=== PATIENT | female | born 1990 | race Asian ===

== ENCOUNTER 2017-11-09 09:57 | Day surgery (SDC) | payer OTHER ==
[~2017-11-09 09:57] MED LIST: CEFAZOLIN 1 GM/50 ML (PMX) 50 ML IVPB; SOD CHLORIDE 0.9% 1,000 ML IV
[2017-11-09] MEDS ORDERED: FENTAnyl 50 MCG/ML VIAL IV ×2 (14:00)
[2017-11-09] MEDS ORDERED: MEPERIDINE 25 MG INJ IV (14:00)
[2017-11-09] MEDS ORDERED: HYDROmorphONE (0.2 MG/ML) 10ML SYG IV ×2 (14:00)
[2017-11-09] MEDS ORDERED: OXYCODONE/ACETAMINOPHEN (5/325) TAB PO ×2 (14:00→16:00)
[2017-11-09] MEDS ORDERED: PROCHLORPERAZINE 10 MG INJ IV (14:00)
[2017-11-09] MEDS ORDERED: BUPIVACAINE 0.25% (MPF) 30 ML INJ (14:08)
[2017-11-09] MEDS ORDERED: LIDOCAINE 2% (SDV) 5 ML INJ (14:26)
[2017-11-09] MEDS ORDERED: ROCURONIUM 50 MG INJ (14:27)
[2017-11-09] MEDS ORDERED: PROPOFOL 20 ML (14:27)
[2017-11-09] MEDS ORDERED: FENTAnyl 50 MCG/ML VIAL ×2 (14:27→14:53)
[2017-11-09] MEDS ORDERED: ONDANSETRON 4 MG INJ (14:27)
[2017-11-09] MEDS ORDERED: MIDAZOLAM 1 MG/ML 2 ML INJ (14:27)
[2017-11-09] MEDS ORDERED: DEXAMETHASONE 4 MG/ML 1 ML INJ (14:27)
[2017-11-09] MEDS ORDERED: CEFAZOLIN 1 GM INJ (14:31)
[2017-11-09] MEDS ORDERED: PHENYLephrine (100 MCG/ML) 5ML SYG (14:37)
[2017-11-09] MEDS ORDERED: SUGAMMADEX SODIUM 200 MG/2 ML VIAL IV ×2 (14:47→15:02)
[2017-11-09] MEDS ORDERED: ROPIVACAINE 0.5 % 30 ML VIAL (14:57)
[2017-11-09] MEDS: BUPIVACAINE 0.25% (MPF) 30 ML INJ INJ (15:02)
[2017-11-09] MEDS ORDERED: KETOROLAC 30 MG INJ ×2 (15:03→15:16)
[2017-11-09] MEDS: DIPHENHYDRAMINE 50 MG INJ IV (15:48)
[2017-11-09] MEDS: ONDANSETRON 4 MG INJ IV (15:48)
[2017-11-09] MEDS: FENTAnyl 50 MCG/ML VIAL IV (15:48)
[2017-11-09] MEDS ORDERED: LABETALOL HCL 20MG INJ IV (16:00)
[2017-11-09] MEDS: HYDROmorphONE (0.2 MG/ML) 10ML SYG IV (16:04)
[2017-11-09] MEDS: HYDROCODONE/APAP (5/325) TAB PO (16:27)
== END 2017-11-09 17:57 | disposition home or self-care (01) ==
LOC: SDS 09:57
DX: K80.10 Calculus of gallbladder with chronic cholecystitis without obstruction (principal)
CPT/HCPCS: 47562; 88304